=== PATIENT | female | born 1925 | race Caucasian/White ===

== ENCOUNTER 2017-07-30 16:05 | Emergency (ER) | payer MEDICARE, OTHER ==
--- NOTE | 2017-07-30 16:46 | EDM.PDOC ---
<Luma Joaquin - Last Filed: 07/30/17 16:39> ED HPI GENERAL MEDICAL PROBLEM - General Chief Complaint: Upper Extremity Injury/Pain Stated Complaint: BUMP ON LEFT WRIST Time Seen by Provider: 07/30/17 16:19 Source of Information: Reports: Patient, Family (Sister) History Limitations: Reports: No Limitations - History of Present Illness INITIAL COMMENTS - FREE TEXT/NARRATIVE: Patient presents for a hematoma which developed approximately 1 hour ago on the dorsal aspect of her Left wrist. She denies any trauma or injury to the arm, denies any pain. She has not done anything strenuous today and cannot recall hitting her hand on anything. She was standing talking to family when they noticed it. She is on Warfarin for A-fib. No recent changes in medications or doses. Last INR check was 1.5 weeks ago, she believes she is due for a re-check tomorrow. Onset: Today Duration: Hour(s): (1) Location: Reports: Upper Extremity, Left (dorsal aspect of L wrist) Associated Symptoms: Reports: No Other Symptoms Left Wrist Pain Score (Numeric/FACES): 6 - Related Data Allergies Allergy/AdvReac Type Severity Reaction Status Date / Time No Known Allergies Allergy Verified 07/30/17 16:15 Home Meds: Home Meds Furosemide 40 mg PO DAILY 07/30/17 [History] Lisinopril 5 mg PO DAILY 07/30/17 [History] Metoprolol Tartrate 100 mg PO DAILY 07/30/17 [History] Pravastatin Sodium [Pravastatin (Pravachol)] 40 mg PO DAILY 07/30/17 [History] Warfarin Sodium 1 mg PO DAILY 07/30/17 [History] Past Medical History Cardiovascular History: Reports: High Cholesterol, Hypertension Musculoskeletal History: Reports: Arthritis - Past Surgical History Cardiovascular Surgical History: Reports: Coronary Artery Bypass Social & Family History - Family History Family Medical History: Noncontributory - Tobacco Use Smoking Status *Q: Never Smoker Second Hand Smoke Exposure: No - Caffeine Use Caffeine Use: Reports: Soda - Recreational Drug Use Recreational Drug Use: No Review of Systems - Review of Systems Review Of Systems: See Below Constitutional: Reports: No Symptoms Mouth/Throat: Reports: No Symptoms Respiratory: Reports: No Symptoms Cardiovascular: Reports: No Symptoms GI/Abdominal: Reports: No Symptoms Musculoskeletal: Reports: Joint Swelling (L wrist, reports it has decreased significantly over the past 20 minutes) Skin: Reports: Change in Color (hematoma of dorsal L wrist with associated swelling). Denies: Wound Neurological: Reports: No Symptoms. Denies: Numbness, Paresthesia, Tingling ED EXAM, GENERAL - Physical Exam Exam: See Below Exam Limited By: No Limitations General Appearance: Alert, WD/WN, No Apparent Distress Ears: Normal External Exam, Hearing Grossly Normal Nose: Normal Inspection Head: Atraumatic, Normocephalic Respiratory/Chest: No Respiratory Distress, Lungs Clear, Normal Breath Sounds, No Accessory Muscle Use, Chest Non-Tender Cardiovascular: Normal Peripheral Pulses, No Edema. No: Regular Rate, Rhythm ( rate controlled atrial fibrillation ) Extremities: Normal Range of Motion, Normal Capillary Refill, Other (hematoma to the L dorsal aspect of wrist, no tenderness with light palpation, full ROM) Neurological: Alert, Oriented, Normal Cognition, No Motor/Sensory Deficits Psychiatric: Normal Affect, Normal Mood Skin Exam: Warm, Dry, Intact Course - Vital Signs Last Recorded V/S: Last Vital Signs Temp 97.4 F 07/30/17 16:20 Pulse 72 07/30/17 16:20 Resp 16 07/30/17 16:20 BP 154/89 H 07/30/17 16:20 Pulse Ox 97 07/30/17 16:20 - Orders/Labs/Meds Orders: Active Orders 24 hr Category Date Time Status Cardiac Monitoring [RC] . DIRECTED Care 07/30/17 16:42 Active Labs: Laboratory Tests 07/30/17 07/30/17 07/30/17 Range/Units 16:48 16:48 16:48 WBC 5.60 (3.98-10.04) K/mm3 RBC 4.10 (3.98-5.22) M/mm3 Hgb 13.6 (11.2-15.7) gm/L Hct 41.4 (34.1-44.9) % MCV 101.0 H (79.4-94.8) fl MCH 33.2 H (25.6-32.2) pg MCHC 32.9 (32.2-35.5) g/dl RDW Std Deviation 54.3 H (36.4-46.3) fL Plt Count 156 L (182-369) K/mm3 MPV 9.7 (9.4-12.3) fl Neut % (Auto) 60.1 (34.0-71.1) % Lymph % (Auto) 19.6 (19.3-51.7) % Floyd % (Auto) 13.0 H (4.7-12.5) % Eos % (Auto) 6.4 H (0.7-5.8) Baso % (Auto) 0.7 (0.1-1.2) % Neut # (Auto) 3.36 (1.56-6.13) K/mm3 Lymph # (Auto) 1.10 L (1.18-3.74) K/mm3 Floyd # (Auto) 0.73 H (0.24-0.36) K/mm3 Eos # (Auto) 0.36 (0.04-0.36) K/mm3 Baso # (Auto) 0.04 (0.01-0.08) K/mm3 PT 31.4 H (9.5-12.1) SECONDS INR 2.94 Sodium 143 (136-145) mEq/L Potassium 4.9 (3.5-5.1) mEq/L Chloride 106 (98-107) mEq/L Carbon Dioxide 27 (21-32) mEq/L Anion Gap 14.9 (5-15) BUN 26 H (7-18) mg/dL Creatinine 1.2 H (0.55-1.02) mg/dL Est Cr Clr Drug Dosing 26.29 mL/min Estimated GFR (MDRD) 42 (>60) mL/min BUN/Creatinine Ratio 21.7 H (14-18) Glucose 112 (83-115) mg/dL Calcium 9.3 (8.5-10.1) mg/dL Total Bilirubin 1.0 (0.2-1.0) mg/dL AST 21 (15-37) U/L ALT 20 (14-59) U/L Alkaline Phosphatase 117 H (46-116) U/L Total Protein 7.0 (6.4-8.2) g/dl Albumin 3.7 (3.4-5.0) g/dl Globulin 3.3 gm/dL Albumin/Globulin Ratio 1.1 (1-2) Departure - Departure Disposition: Home, Self-Care 01 Clinical Impression: On warfarin therapy Contusion of left wrist Qualifiers: Encounter type: initial encounter Qualified Code(s): S60.212A - Contusion of left wrist, initial encounter - Discharge Information Referrals: You Markham MD [Primary Care Provider] - 1 Week Forms: ED Department Discharge Additional Instructions: Put the waqar wrap on your wrist the next couple of days. Try to ice your wriest for 15 minutes 3 times per day for 2 days. Try to elevate your wrist as much as you can for 2 days. You INR was 2.94 today. Please return if you are worse. - My Orders Last 24 Hours: My Active Orders 07/30/17 16:42 Cardiac Monitoring [RC] . DIRECTED - Assessment/Plan Last 24 Hours: My Active Orders 07/30/17 16:42 Cardiac Monitoring [RC] . DIRECTED <Butch Finch - Last Filed: 07/30/17 17:29> Course - Re-Assessments/Exams Free Text/Narrative Re-Assessment/Exam: 07/30/17 17:25 Her CBC and CMP look good. Her INR is 2.94. I will discharge her home with an waqar wrap. Departure - Departure Time of Disposition: 17:30 Condition: Good
== END 2017-07-30 17:35 | disposition home or self-care (01) ==
LOC: JD.ED 16:05
DX: S60.212A Contusion of left wrist, initial encounter (principal); Z79.01 Long term (current) use of anticoagulants; I10 Essential (primary) hypertension; E78.00 Pure hypercholesterolemia, unspecified; Z79.899 Other long term (current) drug therapy; M19.90 Unspecified osteoarthritis, unspecified site; X58.XXXA Exposure to other specified factors, initial encounter
CPT/HCPCS: 36415; 80053; 85025; 85610; 99283; 99284